=== PATIENT | female | born 1970 | race Caucasian/White ===

== ENCOUNTER 2017-12-14 18:31 | Inpatient (IN) | payer OTHER ==
[~2017-12-14] VITALS: Ht 152.4 cm; Wt 57.6 kg
[2017-12-14 18:36] VITALS: BP 123/86
[2017-12-14 19:15] LABS: ABSOLUTE MONOCYTES 0.4 thou/uL (0.0-1.2); ABSOLUTE NEUTROPHILS 1.1 thou/uL (1.6-8.1); BASOPHILS 1.7 %; EOSINOPHILS 1.1 %; HEMATOCRIT 30.1 % (37.0-47.0); HEMOGLOBIN 9.7 gm/dL (12.0-15.0); LYMPHOCYTES 39.5 %; MCH 26.9 pg (26.0-34.0); MCHC 32.2 g/dL (28.0-37.0); MCV 83.4 fL (80.0-100.0); MONOCYTES 14.5 %; MPV 7.4 fl. (7.2-11.1); NUCLEATED RBCS 0 /100WBC; PLATELET COUNT* 56 thou/uL (150-400); POLYS 43.2 %; RBC 3.61 mil/uL (4.20-5.00); RDW-CV 20.5 % (10.5-14.5); WBC 2.4 thou/uL (4.0-11.0)
[2017-12-14 19:23] LABS: CALCIUM 8.2 mg/dL (8.5-10.1); CREATININE 0.6 mg/dL (0.6-1.3); POTASSIUM 3.1 mmol/L (3.5-5.1)
[2017-12-14 19:28] LABS: ALBUMIN 3.2 g/dL (3.4-5.0); TOTAL BILIRUBIN 0.3 mg/dL (<0.1-1.0); TOTAL PROTEIN 7.2 g/dL (6.4-8.2)
[2017-12-14 20:03] LABS: PLATELET ESTIMATE DECREASED
[2017-12-14 20:05] LABS: ANISOCYTOSIS 1+
[2017-12-14 20:26] LABS: URINE BILIRUBIN NEGATIVE (Negative); URINE BLOOD NEGATIVE (Negative); URINE CLARITY CLEAR; URINE COLOR YELLOW; URINE GLUCOSE-RANDOM NEGATIVE (Negative); URINE KETONES NEGATIVE (Negative); URINE LEUKOCYTES-REFLEX TRACE (Negative); URINE NITRITE-REFLEX NEGATIVE (Negative); URINE PROTEIN NEGATIVE (Negative); URINE SPECIFIC GRAVITY <= 1.005 (1.005-1.030); URINE UROBILINOGEN 0.2 E.U./dl (0.2-1.0)
[2017-12-14 20:49] LABS: BACTERIA-REFLEX >30 Many /HPF (None Seen); SQUAMOUS 4-10 Moderate /LPF (0-3); URINE WBC-REFLEX 0-5 Rare /HPF (0-5)
[2017-12-14 20:50] LABS: CASTS None Seen /LPF (None Seen); CRYSTALS None Seen /LPF (None Seen)
[2017-12-14 21:03] VITALS: BP 127/88
[2017-12-14 22:30] VITALS: BP 132/93
[2017-12-15] VITALS: BP 111/74
--- NOTE | 2017-12-15 01:06 | NUR ---
PT ADMITTED TO THE TELE FLOOR AT 2230. SHE CAME UP IN A STRETCHER ACCOMPANIED BY ER NURSE AND . SHE HAD ALL HER BELONGINGS WITH HER. PT IS HOMELESS. SHE HAD RECENTLY CONSUMED LARGE AMOUNT OF ALCOHOL. SHE IS ALERT AWAKE ORIETNED X4 FORGETFUL. IV BOLUS OF NS WAS INFUSING ALONG WITH POTASSIUM FOR REPLACEMENT AT TIME OF ADMISSION. VITAL SIGNS ARE WITHIN NORMAL LIMIT. TOBY HART ON THE TRANSPORTATION WORKER. PT IS NPO PER DR ORDER. IS AT BEDSIDE. THEY APPEAR TO BE VERY TIRED AND FELL ASLEEP SOON AFTER I LEFT THE ROOM. CAME BACK FOR ADMISSION HX AND ASSESSMENT , PT AND ARE PROFOUNDLY SLEEPING. I WILL GO BACK AGAIN WHEN THEY ARE MORE AWAKE FOR HX AND ADMISSION ASSESSMENT. NO MED ORDER RECEIVED. NO CONSULT ORDERED. NO MEDICATION RECORD. PT WAS PUT ON 2 L OF O2 PER RT INTIATIVE TO MAINTAIN HER O2 ABOVE 92% WHILE ASLEEP. WILL CONTINUE TO MONOTOR AND WILL PROCEED WITH ADMISSION WORK WHEN PT IS AWAKE.
--- NOTE | 2017-12-15 02:51 | NUR ---
PT COMPLAINS OF PAIN LEVEL OF 5 IN ABDOMEN. TORADOL WAS ORDERED PER DR VP INTEGRITY. ALSO SEEMS TO HAVE TREMORS. COMMUNICATED TO DR VP INTEGRITY WHO GAVE ORDER FOR ALCOHOL WITHDRAWAL PROTOCOL, BANANA BAG AT 125CC PER HOUR.
--- NOTE | 2017-12-15 03:45 | NUR ---
NICOTINE PATCH GIVEN. TORADOL GIVEN FOR PAIN IN ABDOMEN. AWAITNG FOR BANANA BAG TO BE GIVEN. ATIVAN TO BE ADMINSTERED ORDERED. CIWA LEVEL OF 6 RECORDED. PT IS ALERT, AWAKE, ORIENTED X4 . MILD TREMORS NOTICED. HEADACHE LEVEL OF 5. WILL CONTINUE TO MONITOR. HISBAND STATES THAT HE MIGHT BE GOING TO WITHDRAWAL HIMELF IN A COUPLE OF HOURS. RENUKA KUMAR AT [facility] [employer] SUGGESTED HIN TO GO TO THE ER BEFORE THAT HAPPENS.
[2017-12-15 04:00] VITALS: BP 124/77
[2017-12-15 04:54] LABS: URINE BILIRUBIN NEGATIVE (Negative); URINE BLOOD NEGATIVE (Negative); URINE CLARITY CLEAR; URINE COLOR YELLOW; URINE GLUCOSE-RANDOM NEGATIVE (Negative); URINE KETONES NEGATIVE (Negative); URINE LEUKOCYTES-REFLEX 1+ (Negative); URINE NITRITE-REFLEX NEGATIVE (Negative); URINE PROTEIN NEGATIVE (Negative); URINE SPECIFIC GRAVITY <= 1.005 (1.005-1.030); URINE UROBILINOGEN 0.2 E.U./dl (0.2-1.0)
[2017-12-15 05:05] LABS: AMP/METHAMP Negative (Negative); BARBITURATES Negative (Negative); BENZODIAZEPINES Negative (Negative); COCAINE Negative (Negative); METHADONE Negative (Negative); OPIATES Negative (Negative); PCP Negative (Negative); THC POSITIVE (Negative)
[2017-12-15 05:25] LABS: ABSOLUTE LYMPHOCYTES 0.8 thou/uL (0.8-5.3); ABSOLUTE MONOCYTES 0.2 thou/uL (0.0-1.2); ABSOLUTE NEUTROPHILS 0.9 thou/uL (1.6-8.1); BASOPHILS 1.3 %; EOSINOPHILS 1.7 %; HEMATOCRIT 29.3 % (37.0-47.0); HEMOGLOBIN 9.2 gm/dL (12.0-15.0); LYMPHOCYTES 40.2 %; MCH 26.8 pg (26.0-34.0); MCHC 31.5 g/dL (28.0-37.0); MCV 84.9 fL (80.0-100.0); MONOCYTES 11.8 %; MPV 7.7 fl. (7.2-11.1); NUCLEATED RBCS 0 /100WBC; RBC 3.45 mil/uL (4.20-5.00); RDW-CV 20.1 % (10.5-14.5); WBC 2.1 thou/uL (4.0-11.0)
[2017-12-15 05:27] LABS: INR 1.1; PROTIME 10.4 Seconds (9.20-11.50)
--- NOTE | 2017-12-15 05:29 | NUR ---
CRITICAL LAB VALUE RECEIVED FROM LAB. PLATELET OF 45.
[2017-12-15 05:31] LABS: PLATELET COUNT* 45 thou/uL (150-400)
[2017-12-15 05:36] LABS: SQUAMOUS 4-10 Moderate /LPF (0-3)
[2017-12-15 05:37] LABS: BACTERIA-REFLEX >30 Many /HPF (None Seen); CASTS None Seen /LPF (None Seen); CRYSTALS None Seen /LPF (None Seen); MUCUS 4-6 Moderate strn/LPF (None Seen); TRANSITIONAL EPITHEL CELL 0-3 Few /LPF (None Seen); URINE RBC 3-10 Few /HPF (0-2); URINE WBC-REFLEX 6-15 Few /HPF (0-5); WBC CLUMPS Few (None Seen)
[2017-12-15 05:40] LABS: ALBUMIN 2.8 g/dL (3.4-5.0); CALCIUM 7.2 mg/dL (8.5-10.1); CREATININE 0.5 mg/dL (0.6-1.3); MAGNESIUM 1.2 mg/dL (1.8-2.4); PHOSPHORUS* 4.5 mg/dL (2.5-4.9); TOTAL BILIRUBIN 0.4 mg/dL (<0.1-1.0); TOTAL PROTEIN 6.5 g/dL (6.4-8.2)
[2017-12-15 05:44] LABS: POTASSIUM 2.6 mmol/L (3.5-5.1)
[2017-12-15 06:16] LABS: ANISOCYTOSIS 1+; HYPOCHROMASIA 1+; POIKILOCYTOSIS Occasional
--- NOTE | 2017-12-15 06:53 | NUR ---
POTASSIUM REPLACEMENT STARTED. MAG REPLACEMENT NOT STARTED YET PT ONLY HAS ONE IV LINE AND SHE IS /NPO
[2017-12-15 08:00] VITALS: BP 120/81
[2017-12-15 08:38] LABS: % SATURATION 11 % (20-39); IRON 36 ug/dL (50-175)
--- NOTE | 2017-12-15 08:50 | NUR ---
ASSUME CARE OF PT. PT BELIGERENT AND REQUESTING FOOD. INFORMED PT OF NPO STATUS AND REASON FOR BEING NPO. PT STATES "THIS IS BULLSHIT. I CAN'T SMOKE AND I CAN'T EAT!"
--- NOTE | 2017-12-15 10:28 | EKG ---
[place] [address] ELECTROCARDIOGRAM REPORT Name: GUNNERLA NENA CAICEDOTHALIA Room: [address] ADM IN M.R.#: [id number] Admission: 12/14/17 Attend Phys: Aníbal Copeland, Discharge: Date of : 74 Report #: [id number] THIS REPORT FOR: //name// [facility] ED Test Date: 2017-12-14 Test Time: 20:03:47 Pat Name: THALIA CAICEDO Department: Room: [facility] Gender: F Patient Case Manager: SAMIR : 1970 Requested By: Lawanda Contreras Order Number: [id number] MD: David Locke Measurements Intervals [place] Rate: 81 P: 69 NE: 142 QRS: 37 QRSD: 88 T: 34 QT: 375 QTc: 436 Interpretive Statements Sinus rhythm No previous ECG available for comparison Electronically Signed On 12-15-2017 10:28:23 CDT by David Locke [email or web address] <ELECTRONICALLY SIGNED> By: David Locke MD, [facility] 12/15/17 1028 02 02 David Locke MD, FACC /EPI
[2017-12-15 12:00] VITALS: BP 123/89
[2017-12-15 16:00] VITALS: BP 110/94
[2017-12-15 20:00] VITALS: BP 141/84
[2017-12-15 21:28] LABS: MAGNESIUM 1.2 mg/dL (1.8-2.4)
[2017-12-15 21:31] LABS: POTASSIUM 3.6 mmol/L (3.5-5.1)
[2017-12-16] VITALS: BP 119/79
[2017-12-16 04:00] VITALS: BP 121/82
[2017-12-16 04:58] LABS: HEMATOCRIT 28.2 % (37.0-47.0); MCH 27.2 pg (26.0-34.0); MCHC 31.9 g/dL (28.0-37.0); MCV 85.1 fL (80.0-100.0); RBC 3.31 mil/uL (4.20-5.00); WBC 3.2 thou/uL (4.0-11.0)
--- NOTE | 2017-12-16 05:11 | NUR ---
ASSUMED PT CARE REPORT RECEIVED FROM NURSE. OP OR FREFILL SYS IN THE MONITOR SINUS RYHTM ON THE OMONIT. SHE IS AT RISK FOR GALL OF ALCOHOL TT CHESTER U NON OU NFEL RECEPTOE. NS SALINE RUNNING AT 100CC PER HOUR. CRITICAL PLT LEVEL OF 44. VALE LCONTACT THE FR. SHE DOES NOT CCOMPLAINT OF ANY PAIN.WILL CONTINUE TO MONITOR.
[2017-12-16 05:48] LABS: ALBUMIN 2.7 g/dL (3.4-5.0); CALCIUM 7.4 mg/dL (8.5-10.1); CREATININE 0.4 mg/dL (0.6-1.3); MAGNESIUM 1.1 mg/dL (1.8-2.4); POTASSIUM 3.3 mmol/L (3.5-5.1); TOTAL BILIRUBIN 0.3 mg/dL (<0.1-1.0); TOTAL PROTEIN 6.2 g/dL (6.4-8.2)
[2017-12-16 08:05] VITALS: BP 137/90
--- NOTE | 2017-12-16 08:15 | NUR ---
ASSUMED PT. CARE AND RECEIVED REPORT AT 0730. PT A/OX4, VSS, MONITOR ON TRACING ST. PT. C/O MILD ABD. PAIN AND SIGNIFICANT HEADACHE. PT. ON RA @ 96%. CIWA COMPLETED WITH SCORE OF 7. FULL ASSESSMENT COMPLETED, REFER TO CHARTING. PT. S.O. AT BEDSIDE INQUIRING ABOUT WHEN SHE COULD DC. S.O. MAKES SEVERAL COMMENTS ABOUT NEEDING ALCOHOL TO STOP HIS SHAKES, THEN HE LEAVES STATING HE IS GOING TO [facility] [place] FOR A DRINK. PT. TEARFUL THAT S.O. IS LEAVING HER. PT. TREATED WITH IV ATIVAN FOR CIWA, CURRENTLY RESTING IN BED, FALL PRECAUTIONS IN PLACE. WILL CONTINUE WITH PLAN OF CARE.
--- NOTE | 2017-12-16 10:24 | NUR ---
Nutrition: DX of ETOH-related pancreatitis. Pt hungry. Full Liquid diet. Labs: lipase 374, BG WNL, alb 2.7, prealb 37.7. ? cirrhosis. RX: banana bag, B1, zofran. Wt stable, 127#. Poor nutrition-quality of life R/T ETOHism AEB chart review. Per chart, pt has been advised on ETOH cessation, but it is not likely that she will given lack of social support. Otherwise, no nutrition interventions today. Mild risk long-term.
[2017-12-16] MEDS ORDERED: PEPCID20 MG PO (11:06)
[2017-12-16] MEDS ORDERED: VITAMIN B-1100 M1 PO (11:06)
[2017-12-16 11:28] VITALS: BP 137/90
[2017-12-16 12:01] VITALS: BP 149/104
--- NOTE | 2017-12-16 13:00 | NUR ---
DC ORDERS RECEIVED. PT. GIVEN REPLACEMENT K+ X 2 AND IV MAG X1. PT. ASKING FOR ASSISTANCE TO GET TO BUS TERMINAL DOWNTOWN. CAB VOUCHER OBTAINED FOR THIS PURPOSE. IV AND MONITOR REMOVED. PT. GIVEN DC INSTRUCTIONS. PT. LEFT IN CAB WITH S.O., ALL BELONGINGS ACCOUNTED FOR.
[2017-12-16 14:08] LABS: HEPATITIS B SURFACE AG Negative (Negative)
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
--- NOTE | 2017-12-19 12:34 | EEG ---
[address] [address] EEG STUDY REPORT Name: THALIA ADLER Room: [address] IN M.R.#: [id number] Admission: 12/14/17 Attend Phys: Aníbal Copeland, Discharge: 12/16/17 Date of : 74 Report #: [id number] THIS REPORT FOR: //name// CC: CHIARA physician/PCP Aníbal Copeland DATE OF SERVICE: 12/15/2017 INDICATION: The patient's EEG was done to evaluate the patient for seizure. TECHNIQUE: The patient's EEG was done by placing the electrode by standard 10-20 system of electrode placement. Both referential and sequential montages were used for recording. Background activity in this patient's EEG is about 10 Hz and 40 microvolt. It is a symmetrical activity. The patient went to sleep, that is associated with bilateral slowing and vertex sharp waves. Photic stimulation is unremarkable. Throughout the record, no active epileptiform activity was noticed. IMPRESSION: This patient's electroencephalogram is unremarkable. Thank you very much for this referral. <ELECTRONICALLY SIGNED> By: Manish Gerber MD 12/19/17 1234 0747 [id number] Gerber MD /nt
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
== END 2017-12-16 13:10 | disposition home or self-care (01) | DRG 101 ==
LOC: M.ERS 18:31 → M.2W 20:15 → M.TBA-ER 20:15 → M.2W 20:35
PROVIDERS: Internal Medicine; Nurse Practitioner; ADMIT Family Medicine
DX: R56.9 Unspecified convulsions (principal); D61.818 Other pancytopenia; K62.5 Hemorrhage of anus and rectum; F41.9 Anxiety disorder, unspecified; E46 Unspecified protein-calorie malnutrition; F42.9 Obsessive-compulsive disorder, unspecified; R74.0 Nonspecific elevation of levels of transaminase and lactic acid dehydrogenase [LDH]; E87.8 Other disorders of electrolyte and fluid balance, not elsewhere classified; K70.30 Alcoholic cirrhosis of liver without ascites; E83.42 Hypomagnesemia; E87.6 Hypokalemia; F10.120 Alcohol abuse with intoxication, uncomplicated; D50.9 Iron deficiency anemia, unspecified; Z68.24 Body mass index [BMI] 24.0-24.9, adult; Z85.07 Personal history of malignant neoplasm of pancreas; Z98.891 History of uterine scar from previous surgery